=== PATIENT | female | born 1930 | race Caucasian/White ===

== ENCOUNTER 2016-12-29 18:41 | Inpatient (IN) ==
[2016-12-29] MEDS ORDERED: Naloxone 0.4 MG/ML INJ IVP PRN (21:13)
[2016-12-29] MEDS ORDERED: traMADol 50 MG TABLET PO PRN (21:17)
--- NOTE | 2016-12-29 21:23 | Internal Med History&Physical ---
Date of Encounter: 12/29/16 Time of Encounter: 21:20 Assessment and Plan (1) Right humeral fracture Current visit: Yes Status: Acute IV morphine, PO tramadol for severe, moderate pain. NPO after midline. LR IVF. Consult ortho for operative intervention. EKG ordered pre-op eval. No evidence of neuro-vascular compromised at current from fracture noted on exam. Qualifiers: Qualified Code(s): S42.301A - Unspecified fracture of shaft of humerus, right arm, initial encounter for closed fracture (2) Fall Current visit: Yes Status: Acute PT eval for ambulatory function. Possible placement if poor Qualifiers: Qualified Code(s): W19.XXXA - Unspecified fall, initial encounter (3) OAB (overactive bladder) Current visit: Yes Status: Acute oxybutynin (4) Hyperlipidemia Current visit: Yes Status: Acute statin Qualifiers: Qualified Code(s): E78.5 - Hyperlipidemia, unspecified Internal Medicine - H&P: HPI Chief complaint: Fall and right shoulder pain History of present illness: Ms. Araya is a 86 year old female with hx of HTN, HLD, OAB who presents for a right humerus fracture after a mechanical fall at home. She was at home after coming back from [facility] when the fall occurred. She was in the bathroom changing when she slipped on the floor and landed on her right side with severe pain. She is right handed and couldn't get help. She eventually managed to get to [place] ED where XR imaging found an acute impacted right proximal humerus fracture with ant. dislocation possible. A call was placed out to Dr West of ortho where case was discussed. She has focal right shoulder pain - worse with movement, improved with pain meds. Past Med Surg Social Fam HX - Past Medical History Medical history: arthritis, GERD, hyperlipidemia, thyroid disease Psychiatric history: depression - Past Surgical History Surgical History: appendectomy, cholecystectomy, thyroidectomy - Social History Smoking Status: Never smoker Smokeless Tobacco Status: No Alcohol use: none Drug use: none - Additional Family History Additional family history: Family history of hypertension All Systems PM: A 10-system review of systems was performed and is negative for pertinent findings except as documented above in the HPI. Review of systems: ROS 14 point review of systems reviewed as best as possible given presentation. Pertinent positive or negative as per HPI or otherwise reviewed as negative - Constitutional Vitals: HR 82, BP 140/80, On room air Exam: General - AAO x 3 Psych - Appropriate affect/speech. No agitation Eyes - TONI. Eye lids intact. No scleral icterus ENT - Oral mucosa pink, dentition intact. External ear clear/dry/intact. No thyromegaly Lymphatics - No cervical/inguinal lympadenopathy Neuro - No gross peripheral or central neuro deficits with intact CN 2-12 exam Heart - Sinus. RRR. S1 and S2 present. No added HS/murmurs appreciated. No elevated JVD appreciated. No calf swellings/erythema Lung - Adequate air entry b/l, No crackes/wheezes appreciated GI - Soft, non-tender. No hepatosplenomegaly/ascities. BS+ - No CVA/suprapubic tenderness or palpable bladder distension Skin - Intact. No rash/petechiae/ecchymosis. Warm extremities MSK - right shoulder in sling, right upper extremity intact with good pulses and no paresthesia
[2016-12-29] MEDS: Ringers Solution, Lactated 1,000 ML IVC SCH (23:19)
[2016-12-30] MEDS: *HR* Morphine 2 MG/ML SYRINGE IVP PRN ×3 (05:13→15:48)
[2016-12-30 06:34] LABS: Basophils % 0.2 %; Eosinophils % 0.5 %; Hematocrit 37.9 % (35.3-44.9); Hemoglobin 12.3 g/dL (11.5-15.4); Immature Granulocytes % 0.2 % (0-4); Lymphocytes # 1.6 K/mcL (0.6-4.6); Lymphocytes % 19.3 %; Mean Corpuscular HGB Conc 32.5 g/dL (31.6-35.5); Mean Corpuscular Hemoglobin 31.1 pg (28.0-33.3); Mean Corpuscular Volume 95.7 fL (83.0-100.0); Mean Platelet Volume 10.8 fL (9.4-12.4); Monocytes # 0.7 K/mcL (0.0-1.3); Monocytes % 8.3 %; Platelet Count 143 K/mcL (140-400); Red Blood Count 3.96 M/mcL (3.82-4.97); Red Cell Distribution Width 13.2 % (11.5-14.5); Segmented Neutrophils % 71.5 %
--- NOTE | 2016-12-30 06:40 | Orthopedic Consult Note ---
Date of Encounter: 12/30/16 Time of Encounter: 06:39 History of Present Illness HPI: Ms. Araya is a 86 year old female Status post fall yesterday transferred from [facility] ER with proximal humerus fracture. Patient denies any head trauma denies any loss of consciousness. Physical exam Right upper extremity Pain-free active range of motion right elbow Painful motion right shoulder Neurovascular intact X-rays reviewed show retained hardware from previous rotator cuff repair show inferior subluxation of humeral head possible nondisplaced fracture. Recommendation obtain stat CT scan to determine surgical indication. Past Med Surg Social Fam HX - Past Medical History Medical history: arthritis, GERD, hyperlipidemia, thyroid disease Psychiatric history: depression - Past Surgical History Surgical History: appendectomy, cholecystectomy, thyroidectomy - Social History Smoking Status: Never smoker Smokeless Tobacco Status: No Alcohol use: none Drug use: none Medications and Allergies Allergies No Known Allergies Allergy (Verified 12/30/16 03:32) All Systems Reviewed: A 10-system review of systems was performed and is negative for pertinent findings except as documented above in the HPI. Physical Exam - Constitutional Vitals: Temp Pulse Resp BP Pulse Ox 97.4 F L 57 15 143/70 94 12/30/16 03:57 12/30/16 03:57 12/30/16 03:57 12/30/16 03:57 12/30/16 03:57 Results - Labs Result Diagrams: 12/30/16 05:51 Labs: Abnormal lab results POC Glucose 99 (58-89) H 12/30/16 05:52 H & H 12/30/16 Range/Units 05:51 Hgb 12.3 (11.5-15.4) g/dL Hct 37.9 (35.3-44.9) % All other labs normal. Consult Discharge Plan - Plan Referrals: Laurence Decker, PhD [Primary Care Provider] -
[2016-12-30 06:45] LABS: BUN/Creatinine Ratio 15 (6-26); Blood Urea Nitrogen 11 mg/dL (7-20); Calcium 8.6 mg/dL (8.6-10.8); Carbon Dioxide 21 mEq/L (19-29); Chloride 106 mEq/L (98-109); Glucose 97 mg/dL (70-99); Osmolality,Calculated 283 (280-300); Potassium 4.2 mEq/L (3.5-4.5); Sodium 137 mEq/L (136-145); eGFR For African Americans > 60 (> 60); eGFR For Non-African Americans > 60 (> 60)
[2016-12-30] MEDS: *HR* Enoxaparin 40 MG/0.4 ML SYRINGE SQ SCH (06:49)
--- NOTE | 2016-12-30 08:53 | Orthopedics Progress Note ---
Date of Encounter: 12/30/16 Time of Encounter: 08:53 Subjective Interval history: CT scan reviewed nonoperative fracture pattern recommended treatment is immobilization wrist and elbow motion okay no shoulder motion follow-up in 1 week. Objective Vital signs: Vital Signs Temp Pulse Resp BP Pulse Ox 12/30/16 07:52 98.1 F 61 18 128/57 94 12/30/16 03:57 97.4 F L 57 15 143/70 94 12/30/16 00:11 97.7 F 59 14 120/73 94 12/29/16 21:17 98.1 F 56 14 145/71 94 Intake and Output 12/29/16 12/30/16 12/30/16 23:59 07:59 15:59 Intake Total 700 / 700 Output Total 400 / 400 Balance 700 / 700 -400 / -400 Intake: Oral 700 / 700 Output: Urine 400 / 400 Other: Meal snack: water and pop Weight 61.75 kg 61.75 kg Blood Glucose* 99 Patient Weight 12/30/16 23:59 Weight 61.75 kg - Labs CBC & BMP: 12/30/16 05:51 12/30/16 05:51 Labs: Abnormal lab results POC Glucose 99 (58-89) H 12/30/16 05:52 Consult Discharge Plan - Plan Referrals: Laurence Decker, PhD [Primary Care Provider] -
--- NOTE | 2016-12-30 15:15 | Internal Med Progress Note ---
Date of Encounter: 12/30/16 Time of Encounter: 15:12 - Assessment and plan (1) Right humeral fracture Current Visit: Yes Status: Acute Assessment and plan: Sustained a mechanical fall at home and right humeral neck fracture. Orthopedic surgery consulted, recommendations appreciated. Patient is noted to have a nonsurgical fracture and recommend conservative management with right upper extremity sling, which has been placed. Recommend outpatient orthopedics follow-up in one week. Pain control with when necessary oral Percocet and cautious IV morphine. Physical therapy evaluation noted, recommend placement in inpatient rehabilitation as the patient lives alone at home. Supportive care. Qualifiers: Encounter type: initial encounter Humerus Location: surgical neck Fracture morphology: unspecified fracture morphology Fracture alignment: displaced Qualified Code(s): S42.211A - Unspecified displaced fracture of surgical neck of right humerus, initial encounter for closed fracture (2) OAB (overactive bladder) Current Visit: Yes Status: Chronic Assessment and plan: Continue home medications. (3) Hyperlipidemia Current Visit: Yes Status: Chronic Qualifiers: Hyperlipidemia type: unspecified Qualified Code(s): E78.5 - Hyperlipidemia , unspecified - Subjective Interval history: Feels better but still has significant pain in right shoulder; no fever, chest pain, dyspnea. - Constitutional Vitals: Temp Pulse Resp BP Pulse Ox 98.4 F 57 16 129/72 94 12/30/16 11:33 12/30/16 11:33 12/30/16 11:33 12/30/16 11:33 12/30/16 11:33 General appearance: Present: mild distress, A&O X 3, answers questions appropriately - Respiratory Respiratory exam: Present: CTAB (at left base; cannot auscultate right base due to shoulder pain and immobility). Absent: accessory muscle use, rales, rhonchi , wheezes - Cardiovascular Cardiovascular exam: Present: bradycardia, RRR, +S1, +S2. Absent: diastolic murmur, gallop, rubs, systolic murmur - Extremities Exam Extremities exam: Present: full ROM (restricted at right shoulder), warm, radial pulses palpable and symetrical. Absent: calf tenderness, cyanotic, pedal edema Additional comments: right UE in sling - Neurological Exam Neurological exam: Present: CN II-XII intact, oriented X3, no focal deficits. Absent: pronater drift, facial droop, speech deficit Internal Medicine: Result - Labs CBC & Chem 7: 12/30/16 05:51 12/30/16 05:51 Labs: Short CBC 12/30/16 Range/Units 05:51 WBC 8.4 (4.3-11.1) K/mcL Hgb 12.3 (11.5-15.4) g/dL Hct 37.9 (35.3-44.9) % Plt Count 143 (140-400) K/mcL Neutrophils # 6.0 (1.6-8.9) K/mcL BMP 12/30/16 05:51 Sodium 137 Potassium 4.2 Chloride 106 Carbon Dioxide 21 BUN 11 Creatinine 0.71 Glucose 97 Calcium 8.6 - Impressions Impressions Humerus CT 12/30/16 06:43 IMPRESSION: 1. Mild lead angulated and posteriorly displaced transverse fracture of the right humeral neck. 2. No evidence of glenohumeral dislocation. 3. 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 D/ / Juan Pablo Marrero MD / Juan Pablo Marrero MD Interpreting Provider: Juan Pablo Marrero MD Consult Discharge Plan - Plan Referrals: Laurnece Decker, PhD [Primary Care Provider] -
[2016-12-30] MEDS: Ringers Solution, Lactated 1,000 ML IVC SCH (16:50)
[2016-12-30] MEDS: *HR* OxyCODONE/APAP 5/325 TABLET PO PRN (18:59)
[2016-12-30] MEDS: (Cyclosporine [Restasis] 1 DROP) OP SCH (22:49)
[2016-12-30] MEDS: Latanoprost 2.5 ML BOTTLE BOTH EYES SCH (22:50)
[2016-12-31] MEDS: *HR* Enoxaparin 40 MG/0.4 ML SYRINGE SQ SCH (06:20)
[2016-12-31] MEDS: (Cyclosporine [Restasis] 1 DROP) OP SCH ×2 (09:00→20:42)
--- NOTE | 2016-12-31 14:56 | Internal Med Progress Note ---
<Zeynep Waters - Last Filed: 12/31/16 17:47> Date of Encounter: 12/31/16 Time of Encounter: 14:54 - Assessment and plan (1) Right humeral fracture Current Visit: Yes Status: Acute Assessment and plan: Sustained a mechanical fall at home and right humeral neck fracture. Orthopedic surgery consulted, recommendations appreciated. Patient is noted to have a nonsurgical fracture and recommend conservative management with right upper extremity sling, which has been placed. Recommend outpatient orthopedics follow-up in one week. Physical therapy evaluation noted, recommend placement in inpatient rehabilitation as the patient lives alone at home. Patient complains of inability to have BM, may be secondary to opioid administration. Plan: -Pain control with PRN oral Percocet and cautious IV morphine. -Will add senna plus BID while on opioids -Supportive care. -Anticipate discharge to SNF rehab tomorrow Qualifiers: Encounter type: initial encounter Humerus Location: surgical neck Fracture morphology: unspecified fracture morphology Fracture alignment: displaced Qualified Code(s): S42.211A - Unspecified displaced fracture of surgical neck of right humerus, initial encounter for closed fracture (2) OAB (overactive bladder) Current Visit: Yes Status: Chronic Assessment and plan: Continue home medications. (3) Hyperlipidemia Current Visit: Yes Status: Chronic Qualifiers: Hyperlipidemia type: unspecified Qualified Code(s): E78.5 - Hyperlipidemia , unspecified - Subjective Interval history: Patient seen and examined. She denies any cp, sob, n/v, f/c. She states that her pain is well controlled. She has been getting up with PT and assistance. She states that she has been passing some gas, but has not yet had a BM. - Constitutional Vitals: Temp Pulse Resp BP Pulse Ox 97.9 F 69 18 128/67 93 12/31/16 11:03 12/31/16 11:03 12/31/16 11:03 12/31/16 11:03 12/31/16 11:03 General appearance: Present: cooperative, A&O X 3, pleasant, no acute distress, answers questions appropriately - Head Head exam: Present: atraumatic, normocephalic - Eye Eye exam: Present: PERRL, conjuntiva pink, sclera anicteric Pupils: Present: PERRL - Respiratory Respiratory exam: Present: CTAB. Absent: accessory muscle use, rales, rhonchi, wheezes - Cardiovascular Cardiovascular exam: Present: RRR, +S1, +S2. Absent: diastolic murmur, gallop, rubs, systolic murmur - GI/Abdominal GI/Abdominal exam: Present: normal bowel sounds, soft, no peritoneal signs. Absent: distended, tenderness - Extremities Exam Extremities exam: Present: normal capillary refill, warm, radial pulses palpable and symetrical. Absent: calf tenderness, cyanotic, pedal edema Additional comments: sling in place on right arm - Neurological Exam Neurological exam: Present: CN II-XII intact, oriented X3, no focal deficits. Absent: pronater drift, facial droop, speech deficit - Psychiatric Psychiatric exam: Present: normal affect, normal mood - Skin Skin exam: Present: dry, intact, warm Internal Medicine: Result - Labs CBC & Chem 7: 12/30/16 05:51 12/30/16 05:51 Consult Discharge Plan - Plan Referrals: Laurence Decker, PhD [Primary Care Provider] - <Bernard Grewal - Last Filed: 12/31/16 23:39> Date of Encounter: 12/31/16 - Constitutional Vitals: Temp Pulse Resp BP Pulse Ox 97.9 F 60 16 157/70 95 12/31/16 23:21 12/31/16 23:21 12/31/16 23:21 12/31/16 23:21 12/31/16 23:21 Internal Medicine: Result - Labs CBC & Chem 7: 12/30/16 05:51 12/30/16 05:51 - Attending Attestation I have seen this patient with the Resident and performed an exam. Hope to DC tomorrow.
[2016-12-31] MEDS: Latanoprost 2.5 ML BOTTLE BOTH EYES SCH (20:41)
[2016-12-31] MEDS: *HR* OxyCODONE/APAP 5/325 TABLET PO PRN (20:42)
[2016-12-31] MEDS: Sennosides/Docusate Sodium TABLET PO SCH (20:42)
[2017-01-01] MEDS: *HR* Enoxaparin 40 MG/0.4 ML SYRINGE SQ SCH (05:02)
--- NOTE | 2017-01-01 08:07 | Physician Discharge Referral ---
<Zeynep Waters - Last Filed: 01/01/17 09:46> [facility] Referral Info Transfer To: skilled rehab Provider in Charge after Transfer: PCP Institutional Level of Care: Skilled - Diagnosis (1) Right humeral fracture Priority: Primary Status: Acute (2) OAB (overactive bladder) Priority: Secondary Status: Chronic (3) Hyperlipidemia Priority: Secondary Status: Chronic Prognosis: Good Aware of Diagnosis: Patient Aware of Prognosis: Patient - Transfer Medications Prescriptions: OxyCODONE/APAP 5/325 [Percocet 5/325 MG] 1 each PO Q6HR PRN #28 tab PRN Reason: Pain 4-7 Sennosides/Docusate Sodium [Senna Plus] 1 each PO BID #14 tab Home Medications: Albuterol Sulfate [Proair Hfa] 2 puff IH Q4H PRN 12/30/16 [History] Ca/D3/Mag#11/Zinc/Hand Straightener/Juan Pablo/Bor [Caltrate 600+D Plus Tablet] 1 tab PO DAILY 12/30 [History] Cyclosporine [Restasis] 1 drop BOTH EYES BID 12/30/16 [History] Lactulose [Enulose] 30 ml PO DAILY PRN 12/30/16 [History] Latanoprost [Xalatan] 1 drop BOTH EYES HS 12/30/16 [History] [place]-3/Dha/Epa/Fish Oil [Fish Oil 1,000 mg Softgel] 1 cap PO DAILY 12/30/16 [ History] Oxybutynin [Ditropan] 5 mg PO DAILY 12/30/16 [History] Sertraline [Zoloft] 50 mg PO DAILY 12/30/16 [History] Simvastatin [Zocor] 10 mg PO HS 12/30/16 [History] OxyCODONE/APAP 5/325 [Percocet 5/325 MG] 1 each PO Q6HR PRN #28 tab 01/01/17 [Rx ] Patient Taking Own Medication 0 each OP BID each 01/01/17 [Rx] Sennosides/Docusate Sodium [Senna Plus] 1 each PO BID #14 tab 01/01/17 [Rx] Allergies/Adverse Reactions: Allergies No Known Allergies Allergy (Verified 12/30/16 14:59) - Respiratory Orders Smoking Cessation: Smoking cessation has been advised. For more information, call the [place] Tobacco Quit Line at 2-253-VHDY-NOW. - Advance Directives Code Status: Full Code - Mobility Orders Ambulate - Rehabiliation Orders Rehab Potential: Good Rehab Orders: ROM Exercises, Evaluation for Physical Therapy, Evaluation for Occupational Therapy - Diet Orders Regular CERTIFICATION: I certify that the transfer of the above named patient to an Extended Care Facility is necessary for the continuing treatment of the diagnosis listed. The above information is true and accurate reflection of patient's current condition. Confidential - Redisclosure prohibited without a patient's written consent. <Bernard Grewal - Last Filed: 01/01/17 17:57> - Respiratory Orders Smoking Cessation: Smoking cessation has been advised. For more information, call the [place] [employer] Quit Line at 1-207-ALTDNOW. CERTIFICATION: I certify that the transfer of the above named patient to an Extended Care Facility is necessary for the continuing treatment of the diagnosis listed. The above information is true and accurate reflection of patient's current condition. Confidential - Redisclosure prohibited without a patient's written consent. - Attending Attestation I examined this patient and my medical decision-making was reviewed with the Resident Physician. I agree with the documented findings, disposition and treatment plan as described except to the extent set forth below.
[2017-01-01] MEDS: (Cyclosporine [Restasis] 1 DROP) OP SCH (08:45)
[2017-01-01] MEDS: Sennosides/Docusate Sodium TABLET PO SCH (08:47)
--- NOTE | 2017-01-01 09:43 | Discharge Summary ---
<Zeynep Waters - Last Filed: 01/01/17 09:40> Date of Encounter: 01/01/17 Time of Encounter: 09:40 - Discharge Diagnosis (1) Right humeral fracture Priority: Primary Status: Acute Qualifiers: Encounter type: initial encounter Humerus Location: surgical neck Fracture morphology: unspecified fracture morphology Fracture alignment: displaced Qualified Code(s): S42.211A - Unspecified displaced fracture of surgical neck of right humerus, initial encounter for closed fracture (2) OAB (overactive bladder) Priority: Secondary Status: Chronic (3) Hyperlipidemia Priority: Secondary Status: Chronic Qualifiers: Hyperlipidemia type: unspecified Qualified Code(s): E78.5 - Hyperlipidemia , unspecified - Discharge Medications Prescriptions: OxyCODONE/APAP 5/325 [Percocet 5/325 MG] 1 each PO Q6HR PRN #28 tab PRN Reason: Pain 4-7 Sennosides/Docusate Sodium [Senna Plus] 1 each PO BID #14 tab Home Medications: Albuterol Sulfate [Proair Hfa] 2 puff IH Q4H PRN 12/30/16 [History] Ca/D3/Mag#11/Zinc/Export Sales Manager/Juan Pablo/Bor [Caltrate 600+D Plus Tablet] 1 tab PO DAILY 12/30 [History] Cyclosporine [Restasis] 1 drop BOTH EYES BID 12/30/16 [History] Lactulose [Enulose] 30 ml PO DAILY PRN 12/30/16 [History] Latanoprost [Xalatan] 1 drop BOTH EYES HS 12/30/16 [History] [place]-3/Dha/Epa/Fish Oil [Fish Oil 1,000 mg Softgel] 1 cap PO DAILY 12/30/16 [ History] Oxybutynin [Ditropan] 5 mg PO DAILY 12/30/16 [History] Sertraline [Zoloft] 50 mg PO DAILY 12/30/16 [History] Simvastatin [Zocor] 10 mg PO HS 12/30/16 [History] OxyCODONE/APAP 5/325 [Percocet 5/325 MG] 1 each PO Q6HR PRN #28 tab 01/01/17 [Rx ] Patient Taking Own Medication 0 each OP BID each 01/01/17 [Rx] Sennosides/Docusate Sodium [Senna Plus] 1 each PO BID #14 tab 01/01/17 [Rx] Allergies/Adverse Reactions: Allergies No Known Allergies Allergy (Verified 12/30/16 14:59) Procedures/tests Complete & Pending: Procedures Performed prior 72 hours Category Date Time Status CT humerus RT wo con [CT] Stat Cat Scan 12/30/16 06:43 Completed ECG 12 lead ECG [ECG] Routine Y 12/29/16 21:13 Ordered Date of admission: 12/29/16 21:13 Primary care physician: Laurence Decker Consults: 12/29/16 21:17 Consult to Orthopedic Surgery [CONS] Routine Consulting Provider: [facility] Reason for Consult: humerus fracture. [place] spoke with you Call Completed: No 12/29/16 21:26 Consult to Physical Therapy [CONS] Routine Comment: Evaluate, develop and implement POC Reason for Consult: eval for fall 12/30/16 15:11 Consult to C Web Developer [CONS] Routine Reason for SW Consult: IP rehab placement 12/31/16 15:39 OT [Consult to Occupational Therapy] [CONS] Routine Comment: Evaluate, develop and implement POC Reason for Consult: discharge planning Discharging clinician: Bernard Grewal Anticipated date of discharge: 01/01/17 - Patient Status Disposition: Transfer Inpatient Rehab Fac Condition: Good Functional capacity at discharge: uses cane/walker Overall status at discharge: patient is progressing back to baseline - Discharge Instructions Instructions: Arm Fracture in Adults (DC) Follow Up With: Gonzalo West MD [Partnered Physician] - Laurence Decker, PhD [Primary Care Provider] - Additional Instructions: Discharge Instructions: Total Shoulder Please call [facility] ([phone]), your Primary Care Physician, or report to the Emergency Room if you have any of the following symptoms: Nausea, vomiting, fever greater that 101.5, swelling, chest pain, shortness of breath, increased pain/redness/drainage/odor for your incision site, numbness/ tingling, or any other concerning symptoms. ACTIVITY: Always keep your arm in the sling. Do not raise your arm away from your body. Do not use your arm to help with getting in or out of bed. No weight bearing permitted. Only perform those exercises given to you by your therapist. MEDICATIONS: Upon discharge resume your home medications. Take all the medications as prescribed. Take a stool softener if taking narcotic pain medications. Stool softeners are only effective if you drink enough fluids. Drink 6-8 glass of water or fluids a day, unless this is not allowed for another health problem. Despite using stool softeners, if you haven't had a bowel movement in 3 days, please switch to a gentle laxative. Gentle laxatives are sold over the counter. You should have a bowel movement within 24 hours, if not call the office. You will be discharged from the hospital with a prescription for pain medication. You are encouraged to decrease the use of narcotic pain medication as tolerated. Should you require a refill, please call the office. [facility] prescribes narcotic pain medication for only 4-6 weeks after surgery. If you require pain medication beyond this time period, you may be referred to your Primary Care Physician or to the Pain Clinic for further evaluation. Plan ahead for refills on pain medication as many narcotics either need to be picked up at the office or mailed. It is best to call 48-72 hours in advance of needing a prescription refill so you don't run out of medication. To help control the post-operative pain, you may take NSAIDs (Aleve,Advil, Motrin, Ibuprofen, Naprosyn) or Tylenol as prescribed on the bottle in addition to the pain medication. FOLLOW-UP: Please follow up with your surgeon in the orthopedic clinic, as scheduled - Diet and Activity Activity: as per physical therapy Diet: regular diet Hospital course: Ms. Araya is a 86 year old female - Time Spent with Patient Total time spent providing and/or coordinating discharge services: - Constitutional Vitals: Temp Pulse Resp BP Pulse Ox 97.9 F 53 16 132/70 94 01/01/17 07:25 01/01/17 07:25 01/01/17 07:25 01/01/17 07:25 01/01/17 07:25 General appearance: Present: cooperative, A&O X 3, pleasant, no acute distress, answers questions appropriately - Head Head exam: Present: atraumatic, normocephalic - Respiratory Respiratory exam: Present: CTAB. Absent: accessory muscle use, rales, rhonchi, wheezes - Cardiovascular Cardiovascular exam: Present: RRR, +S1, +S2. Absent: diastolic murmur, gallop, rubs, systolic murmur - GI/Abdominal GI/Abdominal exam: Present: normal bowel sounds, soft, no peritoneal signs. Absent: distended, tenderness - Extremities Exam Extremities exam: Present: warm, radial pulses palpable and symetrical. Absent : calf tenderness, cyanotic, pedal edema Additional comments: sling in place right arm, neurovascularly intact. Mild swelling in hand - Neurological Exam Neurological exam: Present: CN II-XII intact, oriented X3, no focal deficits. Absent: pronater drift, facial droop, speech deficit - Psychiatric Psychiatric exam: Present: normal affect, normal mood - Skin Skin exam: Present: dry, intact, warm <[place],Bernardjose martin Rogerne - Last Filed: 01/01/17 18:06> Date of Encounter: 01/01/17 Procedures/tests Complete & Pending: Procedures Performed prior 72 hours Category Date Time Status CT humerus RT wo con [CT] Stat Cat Scan 12/30/16 06:43 Completed Date of admission: 12/29/16 21:13 Primary care physician: Laurence Decker Consults: 12/29/16 21:17 Consult to Orthopedic Surgery [CONS] Routine Consulting Provider: [facility] Reason for Consult: humerus fracture. [facility] spoke with you Call Completed: No 12/29/16 21:26 Consult to Physical Therapy [CONS] Routine Comment: Evaluate, develop and implement POC Reason for Consult: eval for fall 12/30/16 15:11 Consult to C Web Developer [CONS] Routine Reason for SW Consult: IP rehab placement 12/31/16 15:39 OT [Consult to Occupational Therapy] [CONS] Routine Comment: Evaluate, develop and implement POC Reason for Consult: discharge planning Hospital course: Ms. Araya is a 86 year old female - Time Spent with Patient Total time spent providing and/or coordinating discharge services: - Constitutional Vitals: Temp Pulse Resp BP Pulse Ox 98.1 F 65 18 138/73 92 01/01/17 16:16 01/01/17 16:16 01/01/17 16:16 01/01/17 16:16 01/01/17 16:16 - Attending Attestation I examined this patient and my medical decision-making was reviewed with the Resident Physician. I agree with the documented findings, disposition and treatment plan as described except to the extent set forth below.
[2017-01-01 16:18] VITALS: BP 138/73
== END 2017-01-01 16:30 | DRG 563 ==
LOC: 3NENU
PROVIDERS: ADMIT Family Medicine; ATTEND Internal Medicine